=== PATIENT | male | born 1990 | race Two or more races ===

== ENCOUNTER 2017-09-17 06:56 | Observation (INO) | payer SELFPAY ==
[~2017-09-17 06:56] MED LIST: LIDOCAINE 2% PF Vial for OR 5 ML VIAL.; MIDAZOLAM HCL/PF 2 MG/2 ML VIAL.; PROPOFOL 20 ML IV; fentaNYL PF VIAL 250 MCG/5 ML VIAL
[2017-09-17] MEDS ORDERED: LIDOCAINE 1% PF 2 ML VIAL. ID (07:00)
[2017-09-17] MEDS ORDERED: fentaNYL PF VIAL 100 MCG/2 ML VIAL IV ×2 (07:00→15:45)
[2017-09-17] MEDS: IV RINGERS,LACTATED 1000ML 1,000 ML IV (07:35)
[2017-09-17 07:39] LABS: HEMOGLOBIN 15.7 g/dL (13.0-17.5)
[2017-09-17] MEDS: BUPIVACAINE-EPI 0.25%-1:200000 50 ML VIAL. (10:12)
[2017-09-17] MEDS ORDERED: ONDANSETRON PF 4 MG/2 ML VIAL. (10:17)
[2017-09-17] MEDS ORDERED: DEXAMETHASONE SOD PHOS 20 MG/5 ML VIAL. (10:17)
[2017-09-17] MEDS ORDERED: ROCURONIUM 50 MG/5 ML VIAL. (10:25)
[2017-09-17] MEDS ORDERED: NEOSTIGMINE METHYLSULFATE 5 MG/5 ML SYRINGE. (10:31)
[2017-09-17] MEDS ORDERED: GLYCOPYRROLATE 1 MG/5 ML VIAL. (10:31)
[2017-09-17] MEDS: fentaNYL PF VIAL 100 MCG/2 ML VIAL IV ×4 (11:53→12:29)
[2017-09-17] MEDS ORDERED: ceFAZolin 2GM PREMIX 2 GM/50 ML BAG IV (12:00)
[2017-09-17] MEDS ORDERED: oxyCODONE/APAP 5/325 1 TAB TABLET PO (12:00)
[2017-09-17] MEDS: PROCHLORPERAZINE 10 MG/2 ML VIAL. IV ×2 (12:32→13:00)
[2017-09-17] MEDS: MORPHINE SULFATE 2 MG/ML DISP.SYRIN. IV (13:05)
[2017-09-17] MEDS: oxyCODONE/APAP 5/325 1 TAB TABLET PO (13:42)
[2017-09-17] MEDS: ONDANSETRON PF 4 MG/2 ML VIAL. IV (13:51)
[2017-09-17] MEDS ORDERED: HALOPERIDOL LACTATE 5 MG/ML VIAL. (14:17)
[2017-09-17] MEDS ORDERED: SCOPOLAMINE 1.5MG PATCH. TD (14:19)
[2017-09-17] MEDS: HALOPERIDOL LACTATE 5 MG/ML VIAL. IVP (14:30)
[2017-09-17] MEDS: SCOPOLAMINE 1.5MG PATCH. TD (15:00)
[2017-09-17] MEDS ORDERED: DEXTROSE 50% 25 GM / 50ML DISP.SYRIN. IV (15:45)
[2017-09-17] MEDS ORDERED: ceFAZolin SODIUM 1 GM in IV DEXTROSE 5% 50 ML IV (15:45)
[2017-09-17] MEDS ORDERED: POLYETHYLENE GLYCOL 3350 17 GM PACKET. PO (15:45)
[2017-09-17] MEDS ORDERED: MORPHINE SULFATE 2 MG/ML DISP.SYRIN. IV (15:45)
[2017-09-17] MEDS ORDERED: ONDANSETRON PF 4 MG/2 ML VIAL. IV (15:45)
[2017-09-17] MEDS ORDERED: MORPHINE SULFATE 4 MG/ML DISP.SYRIN. IV (15:45)
[2017-09-17] MEDS ORDERED: HYDROcodone/APAP 7.5/325MG 1 TAB TABLET PO ×2 (15:45)
[2017-09-17] MEDS: ceFAZolin SODIUM IV Push 1 GM VIAL. IVP ×2 (16:53→22:33)
[2017-09-17] MEDS: oxyCODONE IR 5 MG TABLET PO (19:38)
[2017-09-18] MEDS: ceFAZolin SODIUM IV Push 1 GM VIAL. IVP (04:41)
[2017-09-18 05:16] LABS: HEMATOCRIT 40.1 % (39.0-53.0); MEAN CORPUSCULAR HGB CONC 35 g/dL (31-37)
[2017-09-18] MEDS ORDERED: MAGNESIUM HYDROXIDE 2,400 MG/30 ML ORAL.SUSP. PO (06:00)
[2017-09-18] MEDS: CHOLECALCIFEROL (VITAMIN D3) 1,000 UNIT TABLET PO (08:30)
[2017-09-18] MEDS: SENNOSIDES/DOCUSATE 8.6/50MG TABLET. PO (08:30)
[2017-09-18] MEDS: oxyCODONE IR 5 MG TABLET PO (12:59)
[2017-09-18] MEDS ORDERED: BISACODYL 10 MG SUPP.RECT. PR (16:00)
== END 2017-09-18 13:50 | disposition home or self-care (01) ==
LOC: SURG 06:56 → 4 SOUTHEST 16:10
PROVIDERS: Orthopaedic Surgery
DX: S52.301A Unspecified fracture of shaft of right radius, initial encounter for closed fracture (principal); W10.8XXA Fall (on) (from) other stairs and steps, initial encounter; Y93.89 Activity, other specified; Y92.89 Other specified places as the place of occurrence of the external cause; Y99.8 Other external cause status; Z79.899 Other long term (current) drug therapy
CPT/HCPCS: 20690; 36415; 82306; 85014; 85018; 96374; 96376; A7015; C1713; G0378; G0379; J0690; J0780; J1100; J1630; J2001; J2250; J2270; J2405; J2704; J2710; J3010; J3490; J7120